=== PATIENT | male | born 1945 | race Caucasian/White ===

== ENCOUNTER → 2016-09-15 | Outpatient (CLI) | payer MEDICARE, OTHER ==
[~2016-09-15] MED LIST: ACET-2 PO; ALBU2.5V3 NEB; ALBU8.5H3 INH; AMLO5TAB4 PO; ASPI81TA3 PO; ATEN-51 PO; CALC1TAB79 PO; CHOL100062 PO; FAMO40TA52 PO; FERR47.56 PO; FINA5TAB4 PO; GABA100C14 PO; GLUC-137 PO; HYDR-902 PO; LEVO500T10 PO; MILK500C PO; OMEG500C3 PO; PRED10TA PO; SYMB80120 INHALATION; TERA10CA42 PO
--- NOTE | 2016-09-15 17:30 | RADRPT ---
PROCEDURE: XR Right Hip. CLINICAL INDICATION: Right hip pain. TECHNIQUE: Two views. Frontal and lateral. COMPARISON: No prior studies are available for comparison. FINDINGS: There is no fracture or dislocation. Vascular calcifications are present consistent with atherosclerosis. There are degenerative changes of the right hip with joint space narrowing and osteophytes. A surgi basil screw is noted overlying the right iliac wing. There is no lytic or blastic lesion. There is no radiopaque foreign body. IMPRESSION: 1. Moderate degenerative changes of the right hip. 2. Atherosclerosis. 3. Surgical screw overlying the right iliac wing. RPTAT: QQ .Tejas Limon MD, MD Date Time Electronically viewed and signed by .Tejas Limon MD, on 09/15/2016 17:30 .R/
== END | disposition home or self-care (01) ==
LOC: RAD 12:50
PROVIDERS: ATTEND Family Medicine
DX: M25.551 Pain in right hip (principal)
CPT/HCPCS: 73510

== ENCOUNTER 2016-11-30 13:03 | Inpatient (IN) | payer MEDICARE, OTHER ==
[~2016-11-30] VITALS: Ht 182.9 cm; Wt 91.9 kg
[2016-11-30 13:06] VITALS: Ht 182.9 cm; Wt 91.9 kg
[2016-11-30] MEDS ORDERED: METHYLPREDNISOLONE 125 MG INJ IV STA (13:53)
[2016-11-30] MEDS ORDERED: ALBUTEROL 0.083% (NEB) 2.5 MG/3 ML AMP NEB STA (13:53)
[2016-11-30] MEDS ORDERED: IPRATROPIUM (NEB) 0.5 MG/2.5 ML AMP NEB STA (13:53)
[2016-11-30] MEDS ORDERED: LEVOFLOXACIN 750MG/D5W (PMX) 150 ML IVPB STA (13:53)
[2016-11-30] MEDS ORDERED: SODIUM CHLORIDE 0.9% 1L BAG IV* STA (13:53)
[2016-11-30] MEDS ORDERED: ACETAMINOPHEN 500 MG TAB PO STA (14:03)
--- NOTE | 2016-11-30 14:05 | ERA ---
ER Documentation Chief Complaint Date/Time DATE: 11/30/16 TIME: 14:03 Chief Complaint sob, cough and fever x 2 weeks HPI Very polite and kind 71-year-old male with a remote history of smoking, history of COPD who presents the emergency room with several days of fever, mildly productive cough and wheezing. He describes shortness of breath. He noted a fever yesterday evening. Symptoms and worsening over the past 24 hours. It is possible he had a trial of outpatient azithromycin by primary care physician. No recent hospitalizations. ROS All systems reviewed and are negative except as per history of present illness. Medications Home Meds Active Scripts Prednisone* (Prednisone*) 10 Mg Tab, 10 MG PO as directed , #30 TAB Prov:DIPTI BARTON MD 04/07/16 Reported Medications Acetaminophen/Diphenhydramine (Acetaminophen Pm Geltab) 1 Each Tablet, 2 EACH PO QHS, TAB 04/05/16 [place]-3 Fatty Acids (Fish Oil) 500 Mg Capsule, 1000 MG PO DAILY, CAP 04/05/16 Hydrocodone/Acetaminophen ([place] 10-325 Tablet) 1 Each Tablet, 1 EACH PO BID Y for PAIN, TAB 02/16/16 Albuterol Sulfate* (Albuterol Sulfate* Neb) 0.083%-3 Ml Neb, 2.5 MG NEB TID Y for WHEEZING AND SOB, #30 VIAL 02/16/16 Budesonide-Formoterol Fumarate* (Symbicort*) 80-4.5 Inha, 1 PUFFS INHALATION BID , #1 EACH 02/16/16 Albuterol Sulfate* (Proair HFA*) 8.5 Gm Hfa.aer.ad, 2 PUFF INH Q4H Y for WHEEZING AND SOB, #1 INHALER 02/16/16 Glucosamine/Msm/Chondroitin A (TRIPLE FLEX CAPLET) 1 Each Tablet, 2 EACH PO BID , TAB 02/16/16 Milk Thistle* (Milk Thistle*) 500 Mg Capsule, 500 MG PO DAILY, CAP 02/16/16 Calcium Carbonate/Vitamin D3 ([place] 500+D Tablet) 1 Each Tablet, 1 EACH PO DAILY , TAB 02/16/16 Ferrous Sulfate (SLOW RELEASE IRON) 47.5 Mg Tablet.er, 47.5 MG PO DAILY, TAB 02/16/16 Cholecalciferol* (Vitamin D3*) 1,000 Unit Tablet, 3000 UNIT PO DAILY, TAB 02/16/16 Aspirin* (Aspirin* Chew) 81 Mg Tab.chew, 81 MG PO DAILY, TAB.CHEW 07/25/14 Amlodipine Besylate* (Norvasc*) 5 Mg Tablet, 5 MG PO DAILY, TAB 07/25/14 Finasteride* (Finasteride*) 5 Mg Tablet, 5 MG PO DAILY, TAB 07/25/14 Atenolol* (Atenolol*) 25 Mg Tablet, 25 MG PO DAILY, TAB 07/25/14 Famotidine* (Famotidine*) 40 Mg Tablet, 40 MG PO BID, TAB 07/25/14 Terazosin Hcl* (Terazosin Hcl*) 10 Mg Capsule, 10 MG PO HS, CAP 07/25/14 Discontinued Reported Medications Gabapentin* (Gabapentin*) 100 Mg Capsule, 500 MG PO TID, #180 CAP 02/16/16 Discontinued Scripts Levofloxacin* (Levofloxacin*) 500 Mg Tablet, 500 MG PO DAILY for acute bronchitis , #10 TAB Prov:DIPTI BARTON MD 04/07/16 Allergies Allergies: Coded Allergies: Penicillins (Verified Allergy, Unknown, RASH, 11/30/16) Tetanus Vaccines and Toxoid (Verified Allergy, Unknown, SWELLING, 11/30/16) PMhx/Soc History of Surgery: Yes (back surgery x2, right and left shoulder, right knee, right foot) Anesthesia Reaction: Yes (HE GOT SWOLLEN, AND SAID IT WAS RELATED TO ANESTHESIA) Hx Neurological Disorder: Yes (nuropathy) Hx Respiratory Disorders: Yes (pneumonia, copd, ) Hx Cardiac Disorders: Yes (htn) Hx Psychiatric Problems: No Hx Miscellaneous Medical Probl: No Hx Alcohol Use: No Hx Substance Use: No Hx Tobacco Use: No Smoking Status: Former smoker FmHx Family History: No diabetes Physical Exam Vitals Vital Signs Date Time Temp Pulse Resp B/P Pulse Ox O2 Delivery O2 Flow Rate FiO2 11/30/16 14:13 77 24 96 21 11/30/16 13:56 Nasal Cannula 11/30/16 13:56 Nasal Cannula 11/30/16 13:06 101.2 84 26 105/57 93 Physical Exam General: Well developed, well nourished, no acute distress Head: Normocephalic, atraumatic. Eyes: Pupils equally reactive, EOM intact ENT: Moist mucous membranes Neck: Supple, no lymphadenopathy Respiratory: Wheezing and rhonchi diffusely, no increased work of breathing Cardiovascular: Slight tachycardia, no murmurs, rubs, or gallops Abdominal: Soft, non-tender, non-distended, no peritoneal signs : Deferred MSK: No edema, no unilateral swelling, 5/5 strength Neurologic: Alert and oriented, moving all extremities, normal speech, no focal weakness, no cerebellar signs Skin: No rash Psych: Normal mood Result Diagram: 11/30/16 1400 11/30/16 1400 Results 24 hrs Laboratory Tests Test 11/30/16 14:00 White Blood Count 26.310^3/ul Red Blood Count 4.6010^6/ul Hemoglobin 13.7g/dl Hematocrit 39.3% Mean Corpuscular Volume 85.4fl Mean Corpuscular Hemoglobin 29.8pg Mean Corpuscular Hemoglobin Concent 34.9g/dl Red Cell Distribution Width 13.0% Platelet Count 46018^3/UL Mean Platelet Volume 10.5fl Neutrophils % 88.8% Lymphocytes % 5.5% Monocytes % 4.7% Eosinophils % 0.2% Basophils % 0.2% Nucleated Red Blood Cells % 0.0/100WBC Neutrophils # 23.410^3/ul Lymphocytes # 1.510^3/ul Monocytes # 1.310^3/ul Eosinophils # 0.010^3/ul Basophils # 0.110^3/ul Nucleated Red Blood Cells # 0.010^3/ul Prothrombin Time 13.2Sec Prothrombin Time Ratio 1.0 INR International Normalized Ratio 1.00 Activated Partial Thromboplast Time 30.3Sec Sodium Level 136mmol/L Potassium Level 4.6mmol/L Chloride Level 91mmol/L Carbon Dioxide Level 29mmol/L Anion Gap 21 Blood Urea Nitrogen 14mg/dl Creatinine 0.79mg/dl Glucose Level 111mg/dl Lactic Acid Level 1.8mmol/L Calcium Level 9.9mg/dl Total Bilirubin 0.9mg/dl Direct Bilirubin 0.00mg/dl Indirect Bilirubin 0.9mg/dl Aspartate Amino Transf (AST/SGOT) 29IU/L Alanine Aminotransferase (ALT/SGPT) 32IU/L Alkaline Phosphatase 75IU/L Troponin I 0.018ng/ml Total Protein 7.9g/dl Albumin 4.4g/dl Globulin 3.50g/dl Albumin/Globulin Ratio 1.25 Current Medications Medications (Trade) Dose Ordered Sig/Carrol Route PRN Reason Start Time Stop Time Status Last Admin Dose Admin Sodium Chloride 3160 ml 3,160 ml BOLUS OVER 2 HOURS STAT IV* 11/30/16 13:53 11/30/16 13:56 DC 11/30/16 14:14 Levofloxacin/ Dextrose (Levaquin 750 Mg/ D5W 150 ml (Pmx)) 150 ml @ 100 mls/hr ONCE STAT IVPB 11/30/16 13:53 11/30/16 15:22 11/30/16 15:13 Albuterol (Proventil 0.083% (Neb)) 5 mg ONCE STAT NEB 11/30/16 13:53 11/30/16 13:56 DC 11/30/16 14:04 Ipratropium [place] (Atrovent 0.02% (Neb)) 0.5 mg ONCE STAT NEB 11/30/16 13:53 11/30/16 13:56 DC 11/30/16 14:04 Methylprednisolone Sodium Succinate (Solu-Medrol) 125 mg ONCE STAT IV 11/30/16 13:53 11/30/16 13:56 DC 11/30/16 14:12 Acetaminophen (Tylenol Tab) 1,000 mg ONCE STAT PO 11/30/16 14:03 11/30/16 14:04 DC 11/30/16 14:16 Procedures/MDM EKG, MONITORS, & DIAGNOSTIC IMAGING: EKG: I reviewed and interpreted a 12-lead EKG. Rhythm: Normal sinus rhythm Ectopy: None Intervals: No abnormalities ST segments: No elevations or depressions T waves: No contiguous inversions Chest x-ray: I reviewed and interpreted a 1 view of the chest Mediastinum: No enlargement Cardiac silhouette: No cardiomegaly Airspace: Right-sided atelectasis versus infiltrate Bones: No evidence of fracture LAB INTERPRETATION: Significant leukocytosis, normal lactic acid MEDICAL DECISION MAKING: The patient presents with signs and symptoms concerning for community-acquired pneumonia with potential failure of outpatient azithromycin. The patient has a history of COPD and this could be just an exacerbation of COPD that requires steroids. The patient does have some wheezing. No significant hypoxia, no respiratory distress. No signs or symptoms concerning for pulmonary embolism. Sepsis screening has been initiated. The patient will be given breathing treatments, 30 cc/kg of normal saline was written, the patient was given Levaquin. Patient was also given 125 of Solu-Medrol. The patient states that he feels strongly about going home today. He was advised of the risk of discharge including worsening pneumonia and . The patient verbalizes understanding and has capacity. I discussed that we will see what the laboratory testing shows and see his response to breathing treatments and antibiotics. ER COURSE: The patient has significant leukocytosis despite the fact of not being on steroids. This is concerning for more serious infection. For this reason I would strongly recommend hospitalization. The patient does have Sirs criteria with a source. This is consistent with sepsis but no evidence of altered mental status, hypotension or lactic acidosis. This is not consistent with severe sepsis therefore repeat volume assessment not required in the emergency department. I kept the patient and/or family informed of laboratory and diagnostic imaging results throughout the emergency room course. DISPOSITION PLAN: Medical surgical admission for management of community acquired pneumonia and COPD with exacerbation CONSULTATION: Accepting care team and consultations: I discussed the current laboratory data, diagnostic imaging and emergency care provided. Admitting team: Dr. East Admitting team indication: Insurance directed Consulting services: Dr. Rodgers, patient's primary care physician requested admission to the hospitalist team Departure Diagnosis: Primary Impression: Community acquired pneumonia Additional Impressions: Sepsis Qualified Code: A41.9 - Sepsis, due to unspecified organism COPD with exacerbation Condition: SHWETA Schuler MD Nov 30, 2016 14:05
--- NOTE | 2016-11-30 14:16 | RADRPT ---
PROCEDURE: Chest Radiograph. CLINICAL INDICATION: Sepsis. Congestion. TECHNIQUE: Single frontal chest radiograph. COMPARISON: Chest radiograph 04/05/2016 FINDINGS: The patient is rotated. The cardiomediastinal silhouette is within normal limits. No infiltrate o r effusion is seen. There is a healed right posterior eighth rib fracture, stable. The bones are otherwise grossly intact. IMPRESSION: 1. No evidence of acute cardiopulmonary disease. RPTAT: KK .Alcon Omer MD, MD Date Time Electronically viewed and signed by .Alcon Omer MD, on 11/30/2016 14:16 .B/
[2016-11-30 14:20] LABS: ABNORMAL IP MESSAGE 1; BASOPHIL # 0.1 10^3/ul (0.0-0.1); BASOPHILS % 0.2 % (0.0-2.0); EOSINOPHILS % 0.2 % (0.0-7.0); HEMATOCRIT 39.3 % (42.0-52.0); HEMOGLOBIN 13.7 g/dl (14.0-18.0); LYMPHOCYTES # 1.5 10^3/ul (0.8-2.9); LYMPHOCYTES % 5.5 % (15.0-51.0); MEAN CORPUSCULAR HEMOGLOBIN 29.8 pg (29.0-33.0); MEAN CORPUSCULAR HGB CONC 34.9 g/dl (32.0-37.0); MEAN CORPUSCULAR VOLUME 85.4 fl (82.0-101.0); MEAN PLATELET VOLUME 10.5 fl (7.4-10.4); MONOCYTE # 1.3 10^3/ul (0.3-0.9); MONOCYTES % 4.7 % (0.0-11.0); NEUTROPHIL # 23.4 10^3/ul (1.6-7.5); NEUTROPHILS % 88.8 % (39.0-77.0); PLATELET COUNT 224 10^3/UL (140-415); POSITIVE DIFF @See below; WHITE BLOOD COUNT 26.3 10^3/ul (4.8-10.8)
[2016-11-30 14:34] LABS: PROTIME 13.2 Sec (12.2-14.2)
[2016-11-30 14:35] LABS: PARTIAL THROMBOPLASTIN TIME 30.3 Sec (25.0-35.0)
[2016-11-30 14:40] LABS: ALBUMIN 4.4 g/dl (3.3-4.9); ALBUMIN/GLOBULIN RATIO 1.25; BILIRUBIN,INDIRECT 0.9 mg/dl (0-1.1); BILIRUBIN,TOTAL 0.9 mg/dl (0.2-1.3); CALCIUM 9.9 mg/dl (8.4-10.2); CREATININE 0.79 mg/dl (0.61-1.24); POTASSIUM 4.6 mmol/L (3.5-5.1); TOTAL PROTEIN 7.9 g/dl (6.1-8.1)
[2016-11-30 14:50] LABS: TROPONIN-I 0.018 ng/ml (0.00-0.12)
[2016-11-30 15:13] VITALS: TEMP 100.2
[2016-11-30] MEDS ORDERED: ACETAMINOPHEN 325 MG TAB PO PRN (15:30)
[2016-11-30] MEDS ORDERED: ONDANSETRON 4 MG INJ IV PRN (15:30)
[2016-11-30 15:34] LABS: ADD UMIC NO; UR ASCORBIC ACID NEGATIVE (NEGATIVE); UR BILIRUBIN (Dip) NEGATIVE (NEGATIVE); UR BLOOD (Dip) NEGATIVE (NEGATIVE); UR CLARITY CLEAR (CLEAR); UR COLOR YELLOW (YELLOW); UR GLUCOSE (Dip) NEGATIVE (NEGATIVE); UR KETONES (Dip) NEGATIVE (NEGATIVE); UR LEUKOCYTE ESTERASE (Dip) NEGATIVE Leu/ul (NEGATIVE); UR NITRITE (Dip) NEGATIVE (NEGATIVE); UR SPECIFIC GRAVITY (Dip) 1.013 (1.003-1.030); UR TOTAL PROTEIN (Dip) NEGATIVE (NEGATIVE); UR UROBILINOGEN (Dip) NEGATIVE (NEGATIVE)
[2016-11-30] MEDS ORDERED: GABAPENTIN 300 MG CAP PO ONE (16:00)
--- NOTE | 2016-11-30 16:25 | HP ---
Date/Time of Note Date/Time of Note DATE: 11/30/16 TIME: 16:19 Assessment/Plan VTE Prophylaxis VTE Prophylaxis Intervention: LMWH Assessment/Plan Chief Complaint/Hosp Course 1. Sepsis. The patient has febrile illness, leukocytosis and suspected acute upper airway infection. The patient has no evidence of any septic shock. Pancultures will be obtained. The patient will be continued on empiric antibiotics for any underlying tracheobronchitis. The patient does not have any acute infiltrates on chest x-ray suggesting any pneumonia. 2. COPD exacerbation. The patient will be continued on inhaled bronchodilators. The patient has had a single dose of IV Solu Medrol in the emergency room. The patient had no significant bronchospasms upon my examination. Hence the patient will be started on any tapering dose of steroids at this time. 3. Essential hypertension. The patient will be started on routine antihypertensives. He will also be started on PRN antihypertensives for any systolic blood pressure readings greater than 160 mmHg. 4. Obstructive sleep apnea. The patient will be allowed to use his nocturnal CPAP. 5. Dyslipidemia. The patient was started on a low-cholesterol diet. The patient's fish oil will be resumed. A fasting lipid panel will be obtained. 6. Benign prostatic hypertrophy. The patient will be continued on his home medications. 7. Neuropathy. The patient will be continued on gabapentin. Plan: The patient will be admitted to inpatient medical surgical floor. The patient will be started on a low-cholesterol diet. The patient will be started on DVT prophylaxis and gastrointestinal prophylaxis. The patient will remain a full code. Activities will be as tolerated. The rest of the patient's management will be based on the clinical course and the results of diagnostic studies. Based on the patient's clinical presentation, he most probably requires at least 2 midnights' stay for further management and evaluation of his clinical presentation. The case and management of this patient was fully discussed with . Problems: HPI/ROS Admit Date/Time Admit Date/Time Hx of Present Illness This is a 71-year-old male with past medical history of essential hypertension, dyslipidemia, COPD, obstructive sleep apnea who uses nocturnal BiPAP, and neuropathy, who came to the emergency room with chief complaint of dyspnea, cough and fever that has been going on for the past 2 weeks. The patient sought medical attention as outpatient and tried a course of Zithromax with no improvement in symptoms. Patient has been complaining of wet but nonproductive cough. The patient was complaining of headache. Patient denied any nausea, vomiting, or abdominal pain. The patient verbalized some diarrhea that has been resolved. The patient denied any dysuria. In the emergency room, the patient was noticed to have significant leukocytosis with a WBC of 26.3. The patient was noticed to be febrile with a temperature of 101.2F. The patient's chest x-ray was negative for any acute cardiopulmonary findings. The patient was treated with the IV fluids, IV Solu- Medrol, inhaled bronchodilators, and Levaquin in the emergency room. ROS Constitutional: febrile Eyes: no complaints ENT: no complaints Respiratory: cough, shortness of breath Cardiovascular: no complaints Gastrointestinal: no complaints Genitourinary: no complaints Musculoskeletal: back pain Skin: no complaints Neurologic: no complaints Endocrine: no complaints Lymphatic: no complaints Psychological: no complaints Immunologic: no complaints PMH/Family/Social Past Medical History Medical History: high cholesterol, hypertension, other (COPD, obstructive sleep apnea, neuropathy, BPH) Past Surgical History Past Surgical Hx: other (Multiple orthopedic surgeries.) Social History The patient is retired. Lives at home with his Alcohol Use: none Smoking Status: Former smoker Drug Use: none Exam/Review of Systems Vital Signs Vitals Vital Signs Date Time Temp Pulse Resp B/P Pulse Ox O2 Delivery O2 Flow Rate FiO2 11/30/16 15:13 100.2 84 23 130/71 95 Nasal Cannula 2.0 11/30/16 14:13 21 Exam Exam General: Adequately build 71 year-old male lying in bed in no apparent distress. HEENT: Normocephalic, atraumatic. Eyes: Anicteric sclerae, conjunctivae clear. ENT: Nasal septum midline, oral mucosa moist. Neck supple, no JVD noticed. Respiratory: Bilaterally diminished breath sounds. No use of accessory muscles of respiration. Bilateral scattered rhonchi. Cardiovascular: S1, S2 heard. No murmurs or gallops. Abdomen: Soft, nontender, and nondistended. Bowel sounds positive in all 4 quadrants. Genitourinary: Deferred. Extremities: No cyanosis, no clubbing, no edema. Peripheral pulses palpable. Neurologic: Cranial nerves II through XII grossly intact. The patient is awake, alert, and oriented. Skin: Normal skin turgor. No skin rashes. Labs Result Diagram: 11/30/16 1400 11/30/16 1400 Medications Medications Current Medications Amlodipine Besylate (Norvasc) 5 mg DAILY PO ; Start 12/01/16 at 09:00; Status UNV Aspirin (Aspirin) 81 mg DAILY PO ; Start 12/01/16 at 09:00; Status UNV Atenolol (Tenormin) 25 mg DAILY PO ; Start 12/01/16 at 09:00; Status UNV Cholecalciferol (Vitamin D) 3,000 unit DAILY PO ; Start 12/01/16 at 09:00; Status UNV Famotidine (Pepcid) 40 mg BID PO ; Start 11/30/16 at 21:00; Status UNV Finasteride (Proscar) 5 mg DAILY PO ; Start 12/01/16 at 09:00; Status UNV Acetaminophen/ Hydrocodone Bitart ([place] (10/325)) 1 tab BID PRN PO PAIN; Start 11/30/16 at 16:30; Status UNV Terazosin HCl (Hytrin) 10 mg HS PO ; Start 11/30/16 at 21:00; Status UNV Miscellaneous Information 1 puffs BID INHALATION ; Start 11/30/16 at 21:00; Status UNV Miscellaneous Information 1000 mg 1,000 mg DAILY PO ; Start 12/01/16 at 09:00; Status UNV Levofloxacin/ Dextrose (Levaquin 500mg/ D5W 100 ml (Pmx)) 100 ml @ 100 mls/hr Q24H IVPB ; Start 11/30/16 at 16:30; Status UNV Gabapentin (Neurontin) 600 mg TID PO ; Start 11/30/16 at 21:00; Status UNV Procedures Procedures CXR IMPRESSION: 1. No evidence of acute cardiopulmonary disease. Twelve-Lead EKG First-degree AV block. ANANT VICTOR NP Nov 30, 2016 16:25
[2016-11-30] MEDS: SOD CHLORIDE 0.9% 1,000 ML IV SCH (16:30)
[2016-11-30] MEDS ORDERED: NACL 0.9% 3 ML SYG IV SCH (16:30)
[2016-11-30] MEDS ORDERED: ALBUTEROL/IPRATROPIUM (NEB) 3 ML AMP HHN PRN (16:30)
[2016-11-30] MEDS ORDERED: morphine 2 MG INJ IV PRN (16:30)
[2016-11-30] MEDS ORDERED: MAGNESIUM HYDROXIDE 30ML CUP PO PRN (16:30)
[2016-11-30] MEDS ORDERED: BISACODYL (EC) 5 MG TAB PO PRN (16:30)
[2016-11-30] MEDS ORDERED: hydrALAzine 20 MG INJ IV PRN (16:30)
[2016-11-30 17:45] VITALS: BP 141/65; PULSE 77; RESP 20
[2016-11-30] MEDS: ALBUTEROL/IPRATROPIUM (NEB) 3 ML AMP HHN SCH (19:06)
[2016-11-30 20:54] VITALS: BP 153/73; RESP 19
[2016-11-30] MEDS ORDERED: GABAPENTIN 300 MG CAP PO SCH ×2 (21:00→22:00)
[2016-11-30] MEDS: TERAZOSIN 5 MG CAP PO SCH (21:23)
[2016-11-30] MEDS: SALMETEROL/FLUTICASONE 100/50 INHA INH SCH (21:24)
[2016-11-30] MEDS: FAMOTIDINE 20 MG TAB PO SCH (21:24)
[2016-11-30] MEDS: DULOXETINE 30 MG CAP DR PO SCH (21:24)
[2016-12-01 02:00] VITALS: BP 115/55; RESP 18
[2016-12-01] MEDS: GABAPENTIN 300 MG CAP PO SCH ×4 (03:02→21:07)
[2016-12-01] MEDS: SOD CHLORIDE 0.9% 1,000 ML IV SCH ×2 (03:05→14:34)
[2016-12-01 06:09] LABS: BASOPHILS % 0.1 % (0.0-2.0); HEMOGLOBIN 11.6 g/dl (14.0-18.0); LYMPHOCYTES # 1.4 10^3/ul (0.8-2.9); LYMPHOCYTES % 7.8 % (15.0-51.0); MEAN CORPUSCULAR HEMOGLOBIN 28.4 pg (29.0-33.0); MEAN CORPUSCULAR HGB CONC 33.1 g/dl (32.0-37.0); MEAN CORPUSCULAR VOLUME 85.6 fl (82.0-101.0); MEAN PLATELET VOLUME 10.9 fl (7.4-10.4); MONOCYTE # 0.3 10^3/ul (0.3-0.9); MONOCYTES % 1.6 % (0.0-11.0); NEUTROPHIL # 15.6 10^3/ul (1.6-7.5); NEUTROPHILS % 89.8 % (39.0-77.0); PLATELET COUNT 176 10^3/UL (140-415); RED BLOOD COUNT 4.09 10^6/ul (4.70-6.10); RED CELL DISTRIBUTION WIDTH 13.4 % (11.5-14.5); WHITE BLOOD COUNT 17.4 10^3/ul (4.8-10.8)
[2016-12-01 06:33] LABS: ALBUMIN/GLOBULIN RATIO 1.33; BILIRUBIN,INDIRECT 0.6 mg/dl (0-1.1); BILIRUBIN,TOTAL 0.6 mg/dl (0.2-1.3); CALCIUM 9.2 mg/dl (8.4-10.2); CREATININE 0.75 mg/dl (0.61-1.24)
[2016-12-01 07:04] LABS: CHOL/HDL RATIO 3.4 RATIO; MAGNESIUM 1.6 mg/dl (1.7-2.5); PHOSPHORUS 2.7 mg/dl (2.5-4.9)
[2016-12-01 07:30] VITALS: BP 135/60; RESP 20
[2016-12-01 07:34] LABS: THYROID STIMULATING HORMONE 0.218 MIU/L (0.465-4.680)
[2016-12-01] MEDS: ALBUTEROL/IPRATROPIUM (NEB) 3 ML AMP HHN SCH ×3 (07:36→21:49)
[2016-12-01] MEDS: ENOXAPARIN 40 MG/0.4 ML SYG SC SCH (08:05)
[2016-12-01] MEDS: SALMETEROL/FLUTICASONE 100/50 INHA INH SCH ×2 (08:05→21:08)
[2016-12-01] MEDS: FAMOTIDINE 20 MG TAB PO SCH ×2 (08:06→21:08)
[2016-12-01] MEDS: ASPIRIN 81 MG TAB PO SCH (08:06)
[2016-12-01] MEDS: FINASTERIDE 5 MG TAB PO SCH (08:06)
[2016-12-01] MEDS: CHOLECALCIFEROL 1,000 UNIT TAB PO SCH (08:06)
[2016-12-01] MEDS: ATENOLOL 25 MG TAB PO SCH (08:06)
[2016-12-01] MEDS: FISH OIL 1,000 MG CAP PO SCH (08:06)
[2016-12-01] MEDS: AMLODIPINE 5 MG TAB PO SCH (08:06)
[2016-12-01] MEDS ORDERED: ZOLPIDEM 5 MG TAB PO PRN (11:30)
[2016-12-01 14:00] VITALS: BP 132/69; RESP 20
--- NOTE | 2016-12-01 14:20 | PN ---
Date/Time of Note Date/Time of Note DATE: 12/01/16 TIME: 14:12 Assessment/Plan VTE Prophylaxis VTE Prophylaxis Intervention: LMWH Lines/Catheters IV Catheter Type (from Nrs): Peripheral IV Assessment/Plan Assessment/Plan 1. COPD exacerbation, levaquin, nebulizer, soluMedrol 2. Sepsis with leukocytosis and fever, IVF, improving 3. Essential hypertension. controlled 4. Obstructive sleep apnea. The patient will be allowed to use his nocturnal CPAP. 5. Dyslipidemia. The patient was started on low-cholesterol diet. The patient 's fish oil will be resumed. . 6. Benign prostatic hypertrophy. The patient will be continued on his home medications. 7. Neuropathy. The patient will be continued on gabapentin. 8. DVT prophylaxis: lovenox Subjective 24 Hr Interval Summary Free Text/Dictation less cough and shortness of breath today Exam/Review of Systems Vital Signs Vitals Vital Signs Date Time Temp Pulse Resp B/P Pulse Ox O2 Delivery O2 Flow Rate FiO2 12/01/16 07:41 99 21 12/01/16 07:38 92 20 12/01/16 07:30 98.5 135/60 11/30/16 17:45 Nasal Cannula 11/30/16 17:19 2.0 Intake and Output 11/30/16 11/30/16 12/01/16 15:00 23:00 07:00 Intake Total 1500 ml Balance 1500 ml Exam Constitutional: alert, oriented, well developed Psych: nl mood/affect, no complaints Head: atraumatic, normocephalic Eyes: EOMI, PERRL, nl conjunctiva, nl lids, nl sclera ENMT: nl external ears & nose, nl lips & teeth, nl nasal mucosa & septum Neck: non-tender, supple Respiratory: diminished breath sounds Cardiovascular: nl pulses, regular rate and rhythm, No S3, No S4, No bruits, No diastolic murmur, No edema, No gallop, No irregular rhythm, No jugular venous distention (JVD), No murmurs/extra sounds, No other, No rub, No systolic murmur Gastrointestinal: nl liver, spleen, non-tender, soft, No ascites, No bowel sounds, No distended, No firm, No hepatomegaly, No mass , No other, No rebound or guarding, No splenomegaly, No surgical scars, No tender Musculoskeletal: nl extremities to inspection Extremities: normal pulses, No calf tenderness, No clubbing, No cyanosis, No edema, No other, No palpable cord, No pitting pedal edema, No tenderness Neurological: SE[employer]ONAL [employer]IVER II-XII intact, nl mental status, nl speech, nl strength Skin: nl turgor Lymph: nl lymph nodes Results Result Diagram: 12/01/16 0539 12/01/16 0539 Results 24 hrs Laboratory Tests Test 11/30/16 15:10 11/30/16 18:10 11/30/16 20:00 12/01/16 05:39 Urine Color YELLOW Urine Clarity CLEAR Urine pH 8.0 Urine Specific [place] 1.013 Urine Ketones NEGATIVE Urine Nitrite NEGATIVE Urine Bilirubin NEGATIVE Urine Urobilinogen NEGATIVE Urine Leukocyte Esterase NEGATIVE Urine Hemoglobin NEGATIVE Urine Glucose NEGATIVE Urine Total Protein NEGATIVE Lactic Acid Level 1.7 1.7 White Blood Count 17.4 #H Red Blood Count 4.09 L Hemoglobin 11.6 L Hematocrit 35.0 L Mean Corpuscular Volume 85.6 Mean Corpuscular Hemoglobin 28.4 L Mean Corpuscular Hemoglobin Concent 33.1 Red Cell Distribution Width 13.4 Platelet Count 176 # Mean Platelet Volume 10.9 H Neutrophils % 89.8 H Lymphocytes % 7.8 L Monocytes % 1.6 Eosinophils % 0.0 Basophils % 0.1 Nucleated Red Blood Cells % 0.0 Neutrophils # 15.6 H Lymphocytes # 1.4 Monocytes # 0.3 Eosinophils # 0.0 Basophils # 0.0 Nucleated Red Blood Cells # 0.0 Sodium Level 139 Potassium Level 4.0 Chloride Level 99 Carbon Dioxide Level 24 Anion Gap 20 H Blood Urea Nitrogen 19 Creatinine 0.75 Glucose Level 159 Hemoglobin A1c 5.8 Calcium Level 9.2 Phosphorus Level 2.7 Magnesium Level 1.6 L Total Bilirubin 0.6 Direct Bilirubin 0.00 Indirect Bilirubin 0.6 Aspartate Amino Transf (AST/SGOT) 26 Alanine Aminotransferase (ALT/SGPT) 31 Alkaline Phosphatase 65 Total Protein 7.0 Albumin 4.0 Globulin 3.00 Albumin/Globulin Ratio 1.33 Triglycerides Level 53 Cholesterol Level 129 LDL Cholesterol, Calculated 81 HDL Cholesterol 37 Cholesterol/HDL Ratio 3.4 Thyroid Stimulating Hormone (TSH) 0.218 L Free Thyroxine 0.95 Medications Medications Current Medications Amlodipine Besylate (Norvasc) 5 mg DAILY PO Last administered on 12/01/16t 08: 06; Admin Dose 5 MG; Start 12/01/16 at 09:00 Aspirin (Aspirin) 81 mg DAILY PO Last administered on 12/01/16 08:06; Admin Dose 81 MG; Start 12/01/16 at 09:00 Atenolol (Tenormin) 25 mg DAILY PO Last administered on 12/01/16 08:06; Admin Dose 25 MG; Start 12/01/16 at 09:00 Cholecalciferol (Vitamin D) 3,000 unit DAILY PO Last administered on 12/01/16 08:06; Admin Dose 3,000 UNIT; Start 12/01/16 at 09:00 Famotidine (Pepcid) 40 mg BID PO Last administered on 12/01/16 08:06; Admin Dose 40 MG; Start 11/30/16 at 21:00 Finasteride (Proscar) 5 mg DAILY PO Last administered on 12/01/16 08:06; Admin Dose 5 MG; Start 12/01/16 at 09:00 Acetaminophen/ Hydrocodone Bitart ([place] (10/325)) 1 tab BID PRN PO PAIN; Start 11/30/16 at 16:30 Terazosin HCl (Hytrin) 10 mg HS PO Last administered on 11/30/16 21:23; Admin Dose 10 MG; Start 11/30/16 at 21:00 Salmeterol Xinafoate/ Fluticasone (Advair 100/50 Diskus) 1 inh BID INH Last administered on 12/01/16 08:05; Admin Dose 1 INH; Start 11/30/16 at 21:00 Fish Oil 1000 mg 1,000 mg DAILY PO Last administered on 12/01/16 08:06; Admin Dose 1,000 MG; Start 12/01/16 at 09:00 Levofloxacin/ Dextrose (Levaquin 500mg/ D5W 100 ml (Pmx)) 100 ml @ 100 mls/hr Q24H IVPB ; Start 12/01/16 at 15:00 Acetaminophen (Tylenol Tab) 650 mg Q6H PRN PO PAIN LEVEL 1-3 OR FEVER; Start at 16:30 Morphine Sulfate (morphine) 2 mg Q4H PRN IV PAIN LEVEL 7-10; Start 11/30/16 at 16:30 Magnesium Hydroxide (Milk Of Mag) 30 ml DAILY PRN PO CONSTIPATION; Start at 16:30 Bisacodyl (Dulcolax) 5 mg DAILY PRN PO CONSTIPATION; Start 11/30/16 at 16:30 Enoxaparin Sodium 40 mg 40 mg DAILY SC Last administered on 12/01/16 08:05; Admin Dose 40 MG; Start 12/01/16 at 09:00 Sodium Chloride (NS) 1,000 ml @ 100 mls/hr Q10H IV Last administered on 03:05; Admin Dose 100 MLS/HR; Start 11/30/16 at 16:30 Hydralazine HCl (Apresoline) 10 mg Q6H PRN IV SBP>160; Start 11/30/16 at 16:30 Duloxetine HCl (Cymbalta) 30 mg HS PO Last administered on 11/30/16 21:24; Admin Dose 30 MG; Start 11/30/16 at 21:00 Gabapentin (Neurontin) 600 mg Q6H PO Last administered on 12/01/16 08:09; Admin Dose 600 MG; Start 12/01/16 at 03:00 LUCAS RIVERA MD Dec 01, 2016 14:20
[2016-12-01] MEDS: METHYLPREDNISOLONE 40 MG INJ IV SCH ×2 (14:38→21:10)
[2016-12-01] MEDS: LEVOFLOXACIN 500MG/D5W (PMX) 100 ML IVPB SCH (14:39)
[2016-12-01] MEDS ORDERED: MAGNESIUM SULFATE 2 GM/50 ML 50 ML IVPB ONE (16:00)
--- NOTE | 2016-12-01 16:33 | CONS ---
Date/Time of Note Date/Time of Note DATE: 12/01/16 TIME: 16:30 Assessment/Plan Assessment/Plan Chief Complaint/Hosp Course Assessment 1. Acute exacerbation chronic bronchitis 2. Essential hypertension Plan 1. Continue bronchodilators and antibiotics 2. Encourage out of bed 3. Continue outpatient inhalers of Symbicort and Spiriva 4. Continue home medications Problems: Consultation Date/Type/Reason Admit Date/Time Date of Consultation: Dec 01, 2016 Reason for Consultation Cough and shortness of breath Hx of Present Illness 71-year-old gentleman well-known to me with a long history of chronic bronchitis here for the several day history of increasing cough congestion shortness of breath. Patient presents with 2 day history. No hemoptysis or hematemesis he did have fever and chills yesterday. Increasing cough with sputum production. No nausea no vomiting no chest pain. I have been following him in the office with 5 years with chronic bronchitis which was stable at last appointment. Normally he uses Symbicort and Spiriva and rescue inhaler as needed. Normally he does not require supplemental oxygen. As above Eyes: no complaints ENT: no complaints Respiratory: cough, shortness of breath Cardiovascular: no complaints Gastrointestinal: no complaints Genitourinary: no complaints Musculoskeletal: back pain Skin: no complaints Neurologic: no complaints Lymphatic: no complaints Psychological: nl mood/affect, no complaints Immunologic: no complaints Past Medical History Chronic bronchitis Medical History: high cholesterol, hypertension, other (COPD, obstructive sleep apnea, neuropathy, BPH) Past Surgical History Past Surgical Hx: other (Multiple orthopedic surgeries.) Social History Alcohol Use: none Smoking Status: Former smoker Drug Use: none Exam/Review of Systems Vital Signs Vitals Vital Signs Date Time Temp Pulse Resp B/P Pulse Ox O2 Delivery O2 Flow Rate FiO2 12/01/16 14:53 64 20 97 21 12/01/16 14:00 98.0 132/69 11/30/16 17:45 Nasal Cannula 11/30/16 17:19 2.0 Intake and Output 11/30/16 11/30/16 12/01/16 15:00 23:00 07:00 Intake Total 1500 ml Balance 1500 ml Exam GENERAL: Well-nourished well-developed gentleman comfortable at rest no acute distress VITAL SIGNS: per chart NECK: Supple. No JVD or lymphadenopathy. CARDIAC EXAM: S1, S2. No added sounds or murmurs. CHEST: clear bilaterally, No added sounds, rales or wheezes ABDOMEN: Soft, nontender. No guarding or rebound. EXTREMITIES: No cyanosis, clubbing or edema. NEUROLOGIC: Generalized weakness. No focal deficits. Results Result Diagram: 12/01/16 0539 12/01/16 0539 Results 24 hrs Laboratory Tests Test 11/30/16 18:10 11/30/16 20:00 12/01/16 05:39 Lactic Acid Level 1.7 1.7 White Blood Count 17.4 #H Red Blood Count 4.09 L Hemoglobin 11.6 L Hematocrit 35.0 L Mean Corpuscular Volume 85.6 Mean Corpuscular Hemoglobin 28.4 L Mean Corpuscular Hemoglobin Concent 33.1 Red Cell Distribution Width 13.4 Platelet Count 176 # Mean Platelet Volume 10.9 H Neutrophils % 89.8 H Lymphocytes % 7.8 L Monocytes % 1.6 Eosinophils % 0.0 Basophils % 0.1 Nucleated Red Blood Cells % 0.0 Neutrophils # 15.6 H Lymphocytes # 1.4 Monocytes # 0.3 Eosinophils # 0.0 Basophils # 0.0 Nucleated Red Blood Cells # 0.0 Sodium Level 139 Potassium Level 4.0 Chloride Level 99 Carbon Dioxide Level 24 Anion Gap 20 H Blood Urea Nitrogen 19 Creatinine 0.75 Glucose Level 159 Hemoglobin A1c 5.8 Calcium Level 9.2 Phosphorus Level 2.7 Magnesium Level 1.6 L Total Bilirubin 0.6 Direct Bilirubin 0.00 Indirect Bilirubin 0.6 Aspartate Amino Transf (AST/SGOT) 26 Alanine Aminotransferase (ALT/SGPT) 31 Alkaline Phosphatase 65 Total Protein 7.0 Albumin 4.0 Globulin 3.00 Albumin/Globulin Ratio 1.33 Triglycerides Level 53 Cholesterol Level 129 LDL Cholesterol, Calculated 81 HDL Cholesterol 37 Cholesterol/HDL Ratio 3.4 Thyroid Stimulating Hormone (TSH) 0.218 L Free Thyroxine 0.95 Medications Medications Current Medications Amlodipine Besylate (Norvasc) 5 mg DAILY PO Last administered on 12/01/16 08: 06; Admin Dose 5 MG; Start 12/01/16 at 09:00 Aspirin (Aspirin) 81 mg DAILY PO Last administered on 12/01/16 08:06; Admin Dose 81 MG; Start 12/01/16 at 09:00 Atenolol (Tenormin) 25 mg DAILY PO Last administered on 12/01/16 08:06; Admin Dose 25 MG; Start 12/01/16 at 09:00 Cholecalciferol (Vitamin D) 3,000 unit DAILY PO Last administered on 12/01/16 08:06; Admin Dose 3,000 UNIT; Start 12/01/16 at 09:00 Famotidine (Pepcid) 40 mg BID PO Last administered on 12/01/16 08:06; Admin Dose 40 MG; Start 11/30/16 at 21:00 Finasteride (Proscar) 5 mg DAILY PO Last administered on 12/01/16 08:06; Admin Dose 5 MG; Start 12/01/16 at 09:00 Acetaminophen/ Hydrocodone Bitart ([place] (10/325)) 1 tab BID PRN PO PAIN; Start 11/30/16 at 16:30 Terazosin HCl (Hytrin) 10 mg HS PO Last administered on 11/30/16 21:23; Admin Dose 10 MG; Start 11/30/16 at 21:00 Salmeterol Xinafoate/ Fluticasone (Advair 100/50 Diskus) 1 inh BID INH Last administered on 12/01/16 08:05; Admin Dose 1 INH; Start 11/30/16 at 21:00 Fish Oil 1000 mg 1,000 mg DAILY PO Last administered on 12/01/16 08:06; Admin Dose 1,000 MG; Start 12/01/16 at 09:00 Levofloxacin/ Dextrose (Levaquin 500mg/ D5W 100 ml (Pmx)) 100 ml @ 100 mls/hr Q24H IVPB Last administered on 12/01/16 14:39; Admin Dose 100 MLS/HR; Start at 15:00 Acetaminophen (Tylenol Tab) 650 mg Q6H PRN PO PAIN LEVEL 1-3 OR FEVER; Start at 16:30 Morphine Sulfate (morphine) 2 mg Q4H PRN IV PAIN LEVEL 7-10; Start 11/30/16 at 16:30 Magnesium Hydroxide (Milk Of Mag) 30 ml DAILY PRN PO CONSTIPATION; Start at 16:30 Bisacodyl (Dulcolax) 5 mg DAILY PRN PO CONSTIPATION; Start 11/30/16 at 16:30 Enoxaparin Sodium 40 mg 40 mg DAILY SC Last administered on 12/01/16 08:05; Admin Dose 40 MG; Start 12/01/16 at 09:00 Sodium Chloride (NS) 1,000 ml @ 100 mls/hr Q10H IV Last administered on 14:34; Admin Dose 100 MLS/HR; Start 11/30/16 at 16:30 Hydralazine HCl (Apresoline) 10 mg Q6H PRN IV SBP>160; Start 11/30/16 at 16:30 Duloxetine HCl (Cymbalta) 30 mg HS PO Last administered on 11/30/16 21:24; Admin Dose 30 MG; Start 11/30/16 at 21:00 Gabapentin (Neurontin) 600 mg Q6H PO Last administered on 12/01/16 14:39; Admin Dose 600 MG; Start 12/01/16 at 03:00 Methylprednisolone Sodium Succinate 20 mg 20 mg Q8 IV Last administered on 12/01 14:38; Admin Dose 20 MG; Start 12/01/16 at 14:30 Magnesium Sulfate (Magnesium Sulfate 2 Gm/50 ml) 50 ml @ 25 mls/hr ONCE ONCE IVPB Last administered on 12/01/16 16:15; Admin Dose 25 MLS/HR; Start at 16:00; Stop 12/01/16 at 17:59 CONRAD DELCID MD, [facility] Dec 01, 2016 16:33
[2016-12-01 19:46] VITALS: BP 138/65; RESP 18
[2016-12-01] MEDS: TERAZOSIN 5 MG CAP PO SCH (21:08)
[2016-12-01] MEDS: DULOXETINE 30 MG CAP DR PO SCH (21:08)
[2016-12-02 02:00] VITALS: BP 135/62; RESP 20
[2016-12-02] MEDS: GABAPENTIN 300 MG CAP PO SCH ×4 (02:58→20:29)
[2016-12-02] MEDS: SOD CHLORIDE 0.9% 1,000 ML IV SCH ×4 (02:58→23:01)
[2016-12-02] MEDS: HYDROCODONE/APAP (10/325) TAB PO PRN ×2 (03:09→17:11)
[2016-12-02] MEDS: METHYLPREDNISOLONE 40 MG INJ IV SCH ×3 (06:28→22:37)
[2016-12-02 06:38] LABS: BASOPHILS % 0.1 % (0.0-2.0); HEMOGLOBIN 11.1 g/dl (14.0-18.0); LYMPHOCYTES # 1.2 10^3/ul (0.8-2.9); LYMPHOCYTES % 7.3 % (15.0-51.0); MEAN CORPUSCULAR HEMOGLOBIN 28.8 pg (29.0-33.0); MEAN CORPUSCULAR HGB CONC 33.6 g/dl (32.0-37.0); MEAN CORPUSCULAR VOLUME 85.7 fl (82.0-101.0); MEAN PLATELET VOLUME 11.6 fl (7.4-10.4); MONOCYTE # 0.6 10^3/ul (0.3-0.9); MONOCYTES % 3.5 % (0.0-11.0); NEUTROPHILS % 88.5 % (39.0-77.0); PLATELET COUNT 217 10^3/UL (140-415); RED BLOOD COUNT 3.85 10^6/ul (4.70-6.10); RED CELL DISTRIBUTION WIDTH 13.7 % (11.5-14.5)
[2016-12-02 07:21] LABS: CREATININE 0.72 mg/dl (0.61-1.24); MAGNESIUM 2.2 mg/dl (1.7-2.5); POTASSIUM 4.2 mmol/L (3.5-5.1)
[2016-12-02 07:30] VITALS: BP 143/63; RESP 20
[2016-12-02] MEDS: ALBUTEROL/IPRATROPIUM (NEB) 3 ML AMP HHN SCH ×3 (08:34→19:38)
[2016-12-02] MEDS: CHOLECALCIFEROL 1,000 UNIT TAB PO SCH (08:56)
[2016-12-02] MEDS: FINASTERIDE 5 MG TAB PO SCH (08:56)
[2016-12-02] MEDS: ATENOLOL 25 MG TAB PO SCH (08:57)
[2016-12-02] MEDS: SALMETEROL/FLUTICASONE 100/50 INHA INH SCH ×2 (08:57→20:31)
[2016-12-02] MEDS: ASPIRIN 81 MG TAB PO SCH (08:57)
[2016-12-02] MEDS: FISH OIL 1,000 MG CAP PO SCH (08:57)
[2016-12-02] MEDS: FAMOTIDINE 20 MG TAB PO SCH ×2 (08:57→20:30)
[2016-12-02] MEDS: ACETAMINOPHEN 325 MG TAB PO PRN (08:58)
[2016-12-02] MEDS: AMLODIPINE 5 MG TAB PO SCH (08:58)
[2016-12-02] MEDS: ENOXAPARIN 40 MG/0.4 ML SYG SC SCH (08:58)
[2016-12-02] MEDS: LEVOFLOXACIN 500MG/D5W (PMX) 100 ML IVPB SCH (14:01)
[2016-12-02 14:53] VITALS: BP 114/56; RESP 20
--- NOTE | 2016-12-02 15:37 | PN ---
Date/Time of Note Date/Time of Note DATE: 12/02/16 TIME: 15:31 Assessment/Plan VTE Prophylaxis VTE Prophylaxis Intervention: LMWH Lines/Catheters IV [facility]ter Type [facility]from [facility] Peripheral IV Urinary Cath still in place: No Assessment/Plan Chief Complaint/Hosp Course 1. Sepsis secondary to underlying acute bronchitis. No evidence of septic shock. Lopez cultures negative. Continue antibiotics. 2. COPD exacerbation. The patient will be continued on inhaled bronchodilators. Continue tapering dose of steroids. Patient being followed by pulmonology. 3. Essential hypertension. The patient will be continued on routine antihypertensives and PRN antihypertensives for any systolic blood pressure readings greater than 160 mmHg. 4. Obstructive sleep apnea. The patient will be allowed to use his nocturnal CPAP. 5. Dyslipidemia. Continue low-cholesterol diet. Continue fish oil. 6. Benign prostatic hypertrophy. The patient will be continued on his home medications. 7. Neuropathy. The patient will be continued on gabapentin. 8. Fluids, electrolytes, and nutrition. Low-cholesterol diet. 9. DVT prophylaxis with subcutaneous Lovenox. 10. Gastrointestinal prophylaxis. Histamine 2 receptor blockers. 11. Plan. Continue antibiotics. Continue tapering dose of steroids. Continue inhaled bronchodilators. Plan is to discharge patient home once clinically stable. Case discussed with Dr. Eats. Problems: Subjective 24 Hr Interval Summary Free Text/Dictation Feeling better. Remains afebrile. Exam/Review of Systems Vital Signs Vitals Vital Signs Date Time Temp Pulse Resp B/P Pulse Ox O2 Delivery O2 Flow Rate FiO2 12/02/16 14:53 98.0 82 20 114/56 96 12/02/16 14:29 21 11/30/16 17:45 Nasal Cannula 11/30/16 17:19 2.0 Intake and Output 12/01/16 12/01/16 12/02/16 14:59 22:59 06:59 Intake Total 800 ml 1710 ml 1300 ml Balance 800 ml 1710 ml 1300 ml Exam General: Adequately build 71 year-old male lying in bed in no apparent distress. HEENT: Normocephalic, atraumatic. Eyes: Anicteric sclerae, conjunctivae clear. ENT: Nasal septum midline, oral mucosa moist. Neck supple, no JVD noticed. Respiratory: Bilaterally diminished breath sounds. No use of accessory muscles of respiration. Bilateral scattered rhonchi. Cardiovascular: S1, S2 heard. No murmurs or gallops. Abdomen: Soft, nontender, and nondistended. Bowel sounds positive in all 4 quadrants. Genitourinary: Deferred. Extremities: No cyanosis, no clubbing, no edema. Peripheral pulses palpable. Neurologic: Cranial nerves II through XII grossly intact. The patient is awake, alert, and oriented. Skin: Normal skin turgor. No skin rashes. Results Result Diagram: 12/02/1652512/02/16525 Results 24 hrs Laboratory Tests Test 12/02/16 05:26 White Blood Count 17.0 H Red Blood Count 3.85 L Hemoglobin 11.1 L Hematocrit 33.0 L Mean Corpuscular Volume 85.7 Mean Corpuscular Hemoglobin 28.8 L Mean Corpuscular Hemoglobin Concent 33.6 Red Cell Distribution Width 13.7 Platelet Count 217 # Mean Platelet Volume 11.6 H Neutrophils % 88.5 H Lymphocytes % 7.3 L Monocytes % 3.5 Eosinophils % 0.0 Basophils % 0.1 Nucleated Red Blood Cells % 0.0 Neutrophils # 15.0 H Lymphocytes # 1.2 Monocytes # 0.6 Eosinophils # 0.0 Basophils # 0.0 Nucleated Red Blood Cells # 0.0 Sodium Level 139 Potassium Level 4.2 Chloride Level 101 Carbon Dioxide Level 22 Anion Gap 20 H Blood Urea Nitrogen 20 Creatinine 0.72 Glucose Level 149 Calcium Level 9.0 Magnesium Level 2.2 Medications Medications Current Medications Amlodipine Besylate (Norvasc) 5 mg DAILY PO Last administered on 12/02/16 08: 58; Admin Dose 5 MG; Start 12/01/16 at 09:00 Aspirin (Aspirin) 81 mg DAILY PO Last administered on 12/02/16 08:57; Admin Dose 81 MG; Start 12/01/16 at 09:00 Atenolol (Tenormin) 25 mg DAILY PO Last administered on 12/02/16 08:57; Admin Dose 25 MG; Start 12/01/16 at 09:00 Cholecalciferol (Vitamin D) 3,000 unit DAILY PO Last administered on 12/02/16 08:56; Admin Dose 3,000 UNIT; Start 12/01/16 at 09:00 Famotidine (Pepcid) 40 mg BID PO Last administered on 12/02/16 08:57; Admin Dose 40 MG; Start 11/30/16 at 21:00 Finasteride (Proscar) 5 mg DAILY PO Last administered on 12/02/16 08:56; Admin Dose 5 MG; Start 12/01/16 at 09:00 Acetaminophen/ Hydrocodone Bitart ([place] (10/325)) 1 tab BID PRN PO PAIN Last administered on 12/02/16 03:09; Admin Dose 1 TAB; Start 11/30/16 at 16:30 Terazosin HCl (Hytrin) 10 mg HS PO Last administered on 12/01/16 21:08; Admin Dose 10 MG; Start 11/30/16 at 21:00 Salmeterol Xinafoate/ Fluticasone (Advair 100/50 Diskus) 1 inh BID INH Last administered on 12/02/16 08:57; Admin Dose 1 INH; Start 11/30/16 at 21:00 Fish Oil 1000 mg 1,000 mg DAILY PO Last administered on 12/02/16 08:57; Admin Dose 1,000 MG; Start 12/01/16 at 09:00 Levofloxacin/ Dextrose (Levaquin 500mg/ D5W 100 ml (Pmx)) 100 ml @ 100 mls/hr Q24H IVPB Last administered on 12/02/16 14:01; Admin Dose 100 MLS/HR; Start at 15:00 Acetaminophen (Tylenol Tab) 650 mg Q6H PRN PO PAIN LEVEL 1-3 OR FEVER Last administered on 12/02/16 08:58; Admin Dose 650 MG; Start 11/30/16 at 16:30 Morphine Sulfate (morphine) 2 mg Q4H PRN IV PAIN LEVEL 7-10; Start 11/30/16 at 16:30 Magnesium Hydroxide (Milk Of Mag) 30 ml DAILY PRN PO CONSTIPATION; Start at 16:30 Bisacodyl (Dulcolax) 5 mg DAILY PRN PO CONSTIPATION; Start 11/30/16 at 16:30 Enoxaparin Sodium 40 mg 40 mg DAILY SC Last administered on 12/02/16 08:58; Admin Dose 40 MG; Start 12/01/16 at 09:00 Sodium Chloride (NS) 1,000 ml @ 100 mls/hr Q10H IV Last administered on 12:48; Admin Dose 100 MLS/HR; Start 11/30/16 at 16:30 Hydralazine HCl (Apresoline) 10 mg Q6H PRN IV SBP>160; Start 11/30/16 at 16:30 Duloxetine HCl (Cymbalta) 30 mg HS PO Last administered on 12/01/16 21:08; Admin Dose 30 MG; Start 11/30/16 at 21:00 Gabapentin (Neurontin) 600 mg Q6H PO Last administered on 12/02/16 14:01; Admin Dose 600 MG; Start 12/01/16 at 03:00 Methylprednisolone Sodium Succinate (Solu-Medrol) 20 mg Q8 IV Last administered on 12/02/16 14:00; Admin Dose 20 MG; Start 12/01/16 at 14:30 ANANT VICTOR NP Dec 02, 2016 15:37
--- NOTE | 2016-12-02 17:58 | RADRPT ---
PROCEDURE: XR Chest. CLINICAL INDICATION: Cough TECHNIQUE: Single frontal view of the chest was obtained. COMPARISON: 04/05/2016, 11/30/2016 FINDINGS: The cardiomediastinal silhouette is normal size. Pulmonary vasculature is within normal limits. Th e lungs are clear. No signs of pleural fluid or pneumothorax are seen. There are old right posterior rib deformities. IMPRESSION: No evidence for active cardiopulmonary disease. RPTAT: HBST .Sukhdeep Santizo MD, MD Date Time Electronically viewed and signed by .Sukhdeep Santizo MD, MD on 12/02/2016 17:58 .T/
[2016-12-02 19:35] VITALS: BP 135/62; RESP 20
[2016-12-02] MEDS: TERAZOSIN 5 MG CAP PO SCH (20:29)
[2016-12-02] MEDS: DULOXETINE 30 MG CAP DR PO SCH (20:31)
[2016-12-03 02:00] VITALS: BP 140/63; RESP 18
[2016-12-03] MEDS: GABAPENTIN 300 MG CAP PO SCH ×2 (03:06→09:40)
[2016-12-03] MEDS: METHYLPREDNISOLONE 40 MG INJ IV SCH ×2 (05:31→14:18)
[2016-12-03 05:39] LABS: BASOPHILS % 0.1 % (0.0-2.0); HEMATOCRIT 33.7 % (42.0-52.0); HEMOGLOBIN 11.1 g/dl (14.0-18.0); LYMPHOCYTES # 1.1 10^3/ul (0.8-2.9); LYMPHOCYTES % 8.8 % (15.0-51.0); MEAN CORPUSCULAR HEMOGLOBIN 28.5 pg (29.0-33.0); MEAN CORPUSCULAR HGB CONC 32.9 g/dl (32.0-37.0); MEAN CORPUSCULAR VOLUME 86.4 fl (82.0-101.0); MEAN PLATELET VOLUME 11.3 fl (7.4-10.4); MONOCYTE # 0.6 10^3/ul (0.3-0.9); MONOCYTES % 5.1 % (0.0-11.0); NEUTROPHIL # 10.4 10^3/ul (1.6-7.5); NEUTROPHILS % 84.9 % (39.0-77.0); PLATELET COUNT 219 10^3/UL (140-415); WHITE BLOOD COUNT 12.2 10^3/ul (4.8-10.8)
[2016-12-03] MEDS: ACETAMINOPHEN 325 MG TAB PO PRN (05:47)
[2016-12-03 06:49] LABS: IRON 102 ug/dl (35-150)
[2016-12-03 06:59] LABS: CALCIUM 9.1 mg/dl (8.4-10.2); CREATININE 0.71 mg/dl (0.61-1.24); POTASSIUM 4.3 mmol/L (3.5-5.1); TOTAL IRON BINDING CAPACITY 263 ug/dl (241-421)
[2016-12-03 07:15] VITALS: BP 151/71; RESP 16
[2016-12-03 07:47] LABS: MAGNESIUM 2.2 mg/dl (1.7-2.5); PHOSPHORUS 2.8 mg/dl (2.5-4.9)
[2016-12-03] MEDS: HYDROCODONE/APAP (10/325) TAB PO PRN (08:24)
[2016-12-03] MEDS: ALBUTEROL/IPRATROPIUM (NEB) 3 ML AMP HHN SCH (08:55)
[2016-12-03] MEDS: SALMETEROL/FLUTICASONE 100/50 INHA INH SCH (09:39)
[2016-12-03] MEDS: FAMOTIDINE 20 MG TAB PO SCH (09:40)
[2016-12-03] MEDS: ASPIRIN 81 MG TAB PO SCH (09:40)
[2016-12-03] MEDS: FINASTERIDE 5 MG TAB PO SCH (09:40)
[2016-12-03] MEDS: FISH OIL 1,000 MG CAP PO SCH (09:40)
[2016-12-03] MEDS: CHOLECALCIFEROL 1,000 UNIT TAB PO SCH (09:40)
[2016-12-03] MEDS: ATENOLOL 25 MG TAB PO SCH (09:41)
[2016-12-03] MEDS: AMLODIPINE 5 MG TAB PO SCH (09:41)
[2016-12-03] MEDS: ENOXAPARIN 40 MG/0.4 ML SYG SC SCH (09:46)
[2016-12-03] MEDS: SOD CHLORIDE 0.9% 1,000 ML IV SCH (11:09)
--- NOTE | 2016-12-03 11:39 | PDOCDIS ---
Discharge Instructions DIAGNOSIS Discharge Diagnosis Tracheobronchitis. COPD CONDITION Patient Condition: Stable HOME CARE INSTRUCTIONS: Special Diet: low fat, low cholesterol FOLLOW UP/APPOINTMENTS Follow-up Plan Hong Malagon MD Specialty Pulmonary Medicine Office Address [address] [place] [address] Office OTHER ORDERS: Other Orders: 1. Resume home medications. 2. Complete the course of antibiotics 3. Take a low-cholesterol diet. 4. Follow-up with your business transformation manager in 2 weeks. 5. Resume activities as tolerated. ANANT VICTOR NP Dec 03, 2016 11:39
[2016-12-03] MEDS ORDERED: LEVO750T25 PO (12:21)
[2016-12-03] MEDS ORDERED: PRED10TA PO (12:23)
--- NOTE | 2016-12-03 12:58 | DS ---
Date/Time of Note Date/Time of Note DATE: 12/03/16 TIME: 12:56 Discharge Summary Admission/Discharge Info Admit Date/Time Nov 30, 2016 at 15:19 Discharge Date/Time Discharge Diagnosis 1. S/P sepsis secondary to underlying acute bronchitis. 2. COPD exacerbation. 3. Essential hypertension. 4. Obstructive sleep apnea. 5. Dyslipidemia. 6. Benign prostatic hypertrophy. 7. Neuropathy. Patient Condition: Stable Consults 1. Hong Malagon MD, Pulmonary. Procedures CXR IMPRESSION: No evidence for active cardiopulmonary disease. Hx of Present Illness This is a 71-year-old male with past medical history of essential hypertension, dyslipidemia, COPD, obstructive sleep apnea who uses nocturnal BiPAP, and neuropathy, who came to the emergency room with chief complaint of dyspnea, cough and fever that has been going on for the past 2 weeks. The patient sought medical attention as outpatient and tried a course of Zithromax with no improvement in symptoms. Patient has been complaining of wet but nonproductive cough. The patient was complaining of headache. Patient denied any nausea, vomiting, or abdominal pain. The patient verbalized some diarrhea that has been resolved. The patient denied any dysuria. In the emergency room, the patient was noticed to have significant leukocytosis with a WBC of 26.3. The patient was noticed to be febrile with a temperature of 101.2F. The patient's chest x-ray was negative for any acute cardiopulmonary findings. The patient was treated with the IV fluids, IV Solu- Medrol, inhaled bronchodilators, and Levaquin in the emergency room. Hospital Course The patient was admitted to inpatient setting. The patient was started on empiric antibiotics. Pancultures were obtained. The patient was started on inhaled bronchodilators. Initially, the patient was not started on any tapering dose of IV steroids. However, later because of the patient's clinical condition the patient was started on tapering dose of steroids with improvement the patient's symptoms. The patient's dueñas cultures remained negative. The patient's chest x-ray was not showing any infiltrates. Hence it was concluded that the patient's underlying sepsis was most probably secondary to underlying upper airway infection that responded well to the antibiotic regimen. The patient has underlying COPD and the patient follows up with as outpatient. Hence Dr. Malagon was also following the patient. The patient has underlying essential hypertension. He was maintained on antihypertensives. The patient has underlying obstructive sleep apnea. He was maintained on nocturnal CPAP therapy. The patient has underlying dyslipidemia. He was maintained on fish oil. The patient's fasting lipid panel was satisfactory. The patient was noticed to have some normocytic anemia. The patient had no evidence of any bleeding. The patient's iron panel was within normal limits. The patient has underlying neuropathy. He was maintained on gabapentin. The patient had a stable hospital course. The patient's symptoms have almost completely resolved. He was cleared by consultants to be discharged home. Discharge Instructions 1. Resume home medications. 2. Complete the course of antibiotics 3. Take a low-cholesterol diet. 4. Follow-up with your [employer] in 2 weeks. 5. Resume activities as tolerated. Patient verbalized understanding of his discharge instructions. I would like to thank for seeing the patient and providing clinical recommendations. Case discussed with Dr. East. Home Meds Active Scripts Prednisone* (Prednisone*) 10 Mg Tab, 10 MG PO DAILY for 2 Days, #2 TAB Prednisone 10 mg p.o. daily 2 days, then Prednisone 5 mg p.o. daily 2 days. Prov:ANANT VICTOR RETURNS SUPERVISOR 12/03/16 Levofloxacin* (Levaquin*) 750 Mg Tablet, 750 MG PO DAILY for 5 Days, #5 TAB Prov:ANANT VICTOR [employer]NS SUPERVISOR 12/03/16 Reported Medications Acetaminophen/Diphenhydramine (Acetaminophen Pm Geltab) 1 Each Tablet, 2 EACH PO QHS, TAB 04/05/16 [place]-3 Fatty Acids (Fish Oil) 500 Mg Capsule, 1000 MG PO DAILY, CAP 04/05/16 Hydrocodone/Acetaminophen ([place] 10-325 Tablet) 1 Each Tablet, 1 EACH PO BID Y for PAIN, TAB 02/16/16 Albuterol Sulfate* (Albuterol Sulfate* Neb) 0.083%-3 Ml Neb, 2.5 MG NEB TID Y for WHEEZING AND SOB, #30 VIAL 02/16/16 Budesonide-Formoterol Fumarate* (Symbicort*) 80-4.5 Inha, 1 PUFFS INHALATION BID , #1 EACH 02/16/16 Albuterol Sulfate* (Proair HFA*) 8.5 Gm Hfa.aer.ad, 2 PUFF INH Q4H Y for WHEEZING AND SOB, #1 INHALER 02/16/16 Glucosamine/Msm/Chondroitin A (TRIPLE FLEX CAPLET) 1 Each Tablet, 2 EACH PO BID , TAB 02/16/16 Milk Thistle* (Milk Thistle*) 500 Mg Capsule, 500 MG PO DAILY, CAP 02/16/16 Calcium Carbonate/Vitamin D3 ([place] 500+D Tablet) 1 Each Tablet, 1 EACH PO DAILY , TAB 02/16/16 Ferrous Sulfate (SLOW RELEASE IRON) 47.5 Mg Tablet.er, 47.5 MG PO DAILY, TAB 02/16/16 Cholecalciferol* (Vitamin D3*) 1,000 Unit Tablet, 3000 UNIT PO DAILY, TAB 02/16/16 Aspirin* (Aspirin* Chew) 81 Mg Tab.chew, 81 MG PO DAILY, TAB.CHEW 07/25/14 Amlodipine Besylate* (Norvasc*) 5 Mg Tablet, 5 MG PO DAILY, TAB 07/25/14 Finasteride* (Finasteride*) 5 Mg Tablet, 5 MG PO DAILY, TAB 07/25/14 Atenolol* (Atenolol*) 25 Mg Tablet, 25 MG PO DAILY, TAB 07/25/14 Famotidine* (Famotidine*) 40 Mg Tablet, 40 MG PO BID, TAB 07/25/14 Terazosin Hcl* (Terazosin Hcl*) 10 Mg Capsule, 10 MG PO HS, CAP 07/25/14 Discontinued Reported Medications Gabapentin* (Gabapentin*) 100 Mg Capsule, 500 MG PO TID, #180 CAP 02/16/16 Discontinued Scripts Prednisone* (Prednisone*) 10 Mg Tab, 10 MG PO as directed , #30 TAB Prov:DIPTI BARTON MD 04/07/16 Levofloxacin* (Levofloxacin*) 500 Mg Tablet, 500 MG PO DAILY for acute bronchitis , #10 TAB Prov:DIPTI BARTON MD 04/07/16 Follow-up Plan Follow up with [employer] in 2 weeks. Primary Care Provider Manolo Rodgers MD Time spent on discharge: > 30 minutes Pending Labs Laboratory Tests Test 12/03/16 04:25 White Blood Count 12.210^3/ul (4.8-10.8) Red Blood Count 3.9010^6/ul (4.70-6.10) Hemoglobin 11.1g/dl (14.0-18.0) Hematocrit 33.7% (42.0-52.0) Mean Corpuscular Volume 86.4fl (82.0-101.0) Mean Corpuscular Hemoglobin 28.5pg (29.0-33.0) Mean Corpuscular Hemoglobin Concent 32.9g/dl (32.0-37.0) Red Cell Distribution Width 14.0% (11.5-14.5) Platelet Count 66695^3/UL (140-415) Mean Platelet Volume 11.3fl (7.4-10.4) Neutrophils % 84.9% (39.0-77.0) Lymphocytes % 8.8% (15.0-51.0) Monocytes % 5.1% (0.0-11.0) Eosinophils % 0.0% (0.0-7.0) Basophils % 0.1% (0.0-2.0) Nucleated Red Blood Cells % 0.0/100WBC (0.0-0.0) Neutrophils # 10.410^3/ul (1.6-7.5) Lymphocytes # 1.110^3/ul (0.8-2.9) Monocytes # 0.610^3/ul (0.3-0.9) Eosinophils # 0.010^3/ul (0.0-0.5) Basophils # 0.010^3/ul (0.0-0.1) Nucleated Red Blood Cells # 0.010^3/ul (0.0-0.0) Sodium Level 140mmol/L (135-144) Potassium Level 4.3mmol/L (3.5-5.1) Chloride Level 102mmol/L (97-110) Carbon Dioxide Level 24mmol/L (21-31) Anion Gap 18 (8-16) Blood Urea Nitrogen 17mg/dl (7-20) Creatinine 0.71mg/dl (0.61-1.24) Glucose Level 148mg/dl (70-220) Calcium Level 9.1mg/dl (8.4-10.2) Phosphorus Level 2.8mg/dl (2.5-4.9) Magnesium Level 2.2mg/dl (1.7-2.5) Iron Level 102ug/dl (35-150) Total Iron Binding Capacity 263ug/dl (241-421) Percent Iron Saturation 39% SAT (22-52) ANANT VICTOR NP Dec 03, 2016 12:58 ANANT VICTRO NP Dec 03, 2016 12:58
[2016-12-03 14:00] VITALS: RESP 18
--- NOTE | 2016-12-03 14:52 | CONS ---
Date/Time of Note Date/Time of Note DATE: 12/03/16 TIME: 14:52 Consult Date/Type/Reason Admit Date/Time Nov 30, 2016 at 15:19 Initial Consult Date 12/01/16 Type of Consultation: Pulmonary Subjective Patient doing well this morning less shortness of breath. Objective Vital Signs Date Time Temp Pulse Resp B/P Pulse Ox O2 Delivery O2 Flow Rate FiO2 12/03/16 14:00 98.0 71 18 95 12/03/16 09:04 21 11/30/16 17:45 Nasal Cannula 11/30/16 17:19 2.0 Intake and Output 12/02/16 12/02/16 12/03/16 15:00 23:00 07:00 Intake Total 800 ml 2780 ml 1000 ml Balance 800 ml 2780 ml 1000 ml Exam GENERAL: Well-nourished well-developed gentleman comfortable at rest no acute distress VITAL SIGNS: per chart NECK: Supple. No JVD or lymphadenopathy. CARDIAC EXAM: S1, S2. No added sounds or murmurs. CHEST: clear bilaterally, No added sounds, rales or wheezes ABDOMEN: Soft, nontender. No guarding or rebound. EXTREMITIES: No cyanosis, clubbing or edema. NEUROLOGIC: Generalized weakness. No focal deficits. Results/Medications Result Diagram: 12/03/16 0425 12/03/16 0425 Results 24 hrs Laboratory Tests Test 12/03/16 04:25 White Blood Count 12.2 #H Red Blood Count 3.90 L Hemoglobin 11.1 L Hematocrit 33.7 L Mean Corpuscular Volume 86.4 Mean Corpuscular Hemoglobin 28.5 L Mean Corpuscular Hemoglobin Concent 32.9 Red Cell Distribution Width 14.0 Platelet Count 219 Mean Platelet Volume 11.3 H Neutrophils % 84.9 H Lymphocytes % 8.8 L Monocytes % 5.1 Eosinophils % 0.0 Basophils % 0.1 Nucleated Red Blood Cells % 0.0 Neutrophils # 10.4 H Lymphocytes # 1.1 Monocytes # 0.6 Eosinophils # 0.0 Basophils # 0.0 Nucleated Red Blood Cells # 0.0 Sodium Level 140 Potassium Level 4.3 Chloride Level 102 Carbon Dioxide Level 24 Anion Gap 18 H Blood Urea Nitrogen 17 Creatinine 0.71 Glucose Level 148 Calcium Level 9.1 Phosphorus Level 2.8 Magnesium Level 2.2 Iron Level 102 Total Iron Binding Capacity 263 Percent Iron Saturation 39 Medications Current Medications Amlodipine Besylate (Norvasc) 5 mg DAILY PO Last administered on 12/03/16 09: 41; Admin Dose 5 MG; Start 12/01/16 at 09:00 Aspirin (Aspirin) 81 mg DAILY PO Last administered on 12/03/16 09:40; Admin Dose 81 MG; Start 12/01/16 at 09:00 Atenolol (Tenormin) 25 mg DAILY PO Last administered on 12/03/16 09:41; Admin Dose 25 MG; Start 12/01/16 at 09:00 Cholecalciferol (Vitamin D) 3,000 unit DAILY PO Last administered on 12/03/16 09:40; Admin Dose 3,000 UNIT; Start 12/01/16 at 09:00 Famotidine (Pepcid) 40 mg BID PO Last administered on 12/03/16 09:40; Admin Dose 40 MG; Start 11/30/16 at 21:00 Finasteride (Proscar) 5 mg DAILY PO Last administered on 12/03/16 09:40; Admin Dose 5 MG; Start 12/01/16 at 09:00 Acetaminophen/ Hydrocodone Bitart ([place] (10/325)) 1 tab BID PRN PO PAIN Last administered on 12/03/16 08:24; Admin Dose 1 TAB; Start 11/30/16 at 16:30 Terazosin HCl (Hytrin) 10 mg HS PO Last administered on 12/02/16 20:29; Admin Dose 10 MG; Start 11/30/16 at 21:00 Salmeterol Xinafoate/ Fluticasone (Advair 100/50 Diskus) 1 inh BID INH Last administered on 12/03/16 09:39; Admin Dose 1 INH; Start 11/30/16 at 21:00 Fish Oil 1000 mg 1,000 mg DAILY PO Last administered on 12/03/16 09:40; Admin Dose 1,000 MG; Start 12/01/16 at 09:00 Levofloxacin/ Dextrose (Levaquin 500mg/ D5W 100 ml (Pmx)) 100 ml @ 100 mls/hr Q24H IVPB Last administered on 12/02/16 14:01; Admin Dose 100 MLS/HR; Start at 15:00 Acetaminophen (Tylenol Tab) 650 mg Q6H PRN PO PAIN LEVEL 1-3 OR FEVER Last administered on 12/03/16 05:47; Admin Dose 650 MG; Start 11/30/16 at 16:30 Morphine Sulfate (morphine) 2 mg Q4H PRN IV PAIN LEVEL 7-10; Start 11/30/16 at 16:30 Magnesium Hydroxide (Milk Of Mag) 30 ml DAILY PRN PO CONSTIPATION; Start at 16:30 Bisacodyl (Dulcolax) 5 mg DAILY PRN PO CONSTIPATION; Start 11/30/16 at 16:30 Enoxaparin Sodium 40 mg 40 mg DAILY SC Last administered on 12/03/16 09:46; Admin Dose 40 MG; Start 12/01/16 at 09:00 Sodium Chloride (NS) 1,000 ml @ 100 mls/hr Q10H IV Last administered on 11:09; Admin Dose 100 MLS/HR; Start 11/30/16 at 16:30 Hydralazine HCl (Apresoline) 10 mg Q6H PRN IV SBP>160; Start 11/30/16 at 16:30 Duloxetine HCl (Cymbalta) 30 mg HS PO Last administered on 12/02/16 20:31; Admin Dose 30 MG; Start 11/30/16 at 21:00 Gabapentin (Neurontin) 600 mg Q6H PO Last administered on 12/03/16 09:40; Admin Dose 600 MG; Start 12/01/16 at 03:00 Methylprednisolone Sodium Succinate (Solu-Medrol) 20 mg Q8 IV Last administered on 12/03/16 14:18; Admin Dose 20 MG; Start 12/01/16 at 14:30 Assessment/Plan Chief Complaint/Hosp Course Assessment 1. Acute exacerbation chronic bronchitis 2. Essential hypertension Plan 1. Continue bronchodilators and antibiotics 2. Encourage out of bed 3. Continue outpatient inhalers of Symbicort and Spiriva 4. Continue home medications Agree with discharge planning will follow up with me in the office in 2 weeks time. Problems: CONRAD DELCID MD, [facility] Dec 03, 2016 14:52
== END 2016-12-03 14:00 | disposition home or self-care (01) | DRG 871 ==
LOC: E/R 13:03 → PP2 15:19
PROVIDERS: ADMIT Internal Medicine; ATTEND Internal Medicine
DX: A41.9 Sepsis, unspecified organism (principal); J18.9 Pneumonia, unspecified organism; G62.9 Polyneuropathy, unspecified; D64.9 Anemia, unspecified; J44.1 Chronic obstructive pulmonary disease with (acute) exacerbation; J20.9 Acute bronchitis, unspecified; G47.33 Obstructive sleep apnea (adult) (pediatric); I10 Essential (primary) hypertension; E78.5 Hyperlipidemia, unspecified; N40.0 Benign prostatic hyperplasia without lower urinary tract symptoms; Z87.01 Personal history of pneumonia (recurrent); Z98.890 Other specified postprocedural states; Z87.891 Personal history of nicotine dependence; Z79.82 Long term (current) use of aspirin
CPT/HCPCS: 36415; 71010; 80048; 80053; 80061; 81003; 82728; 83036; 83540; 83605; 83735; 84100; 84439; 84443; 84484; 85025; 85610; 85730; 87040; 87086; 87400; 93005; 94640; 94664; 96374; 96375; J1650; J1956; J2920; J2930; J3475; J7030